=== PATIENT | female | born 1990 | race Caucasian/White ===

== ENCOUNTER 2025-03-27 07:42 | Inpatient (IN) ==
[2025-03-27] MEDS ORDERED: OXYTOCIN 30 UNITS/NSS 30 UNITS/500 ML BAG IV PRN ×2 (07:50→21:57)
[2025-03-27] MEDS ORDERED: LIDOCAINE 1% LOCAL 20 ML VIAL INFIL PRN (07:50)
--- NOTE | 2025-03-27 07:53 | History & Physical Report ---
Date of Service March 27, 2025 Assessment & Plan (1) Encounter for induction of labor: Plan Will begin iol with pitocin. Continue to try to dislodge bulb. arom when indicated. epidural on demand. fetus category one. anticipate . Admission and Anticipated Discharge Date Admission Date: March 27, 2025 History of Present Illness Chief Complaint: iol Primary Care Provider: [facility] Patient is a 34yowf with iup at 40 3/7 who presents for iol. Had a storey blub placed last night. and Delivery Plans * PD IOL scheduled 03/27 (40w3d) with [facility]uan Protocols 02/13 arrhythmia heard today on doppler. Weekly NST echo requested OB Labs: Blood Type B Positive 09/10/24 Antibody Screen NEGATIVE 09/10/24 Hgb 11.6 g/dl (12.0-16.0) L 12/30/24 Hct 34.3 % (37.0-47.0) L 12/30/24 MCV 87.3 fL (80.0-100.0) 09/10/24 Plt Count 302 K/uL (130-400) 09/10/24 Rubella IgG Antibody Immune (Immune) 09/10/24 Treponema pallidum Ab Negative (Negative) 12/30/24 Hep Bs Antigen Negative (Negative) 09/10/24 Hepatitis C Antibody Negative (Negative) 09/10/24 HIV 1&2 Ab/P24 Ag 4thGn Negative (Negative) 09/10/24 Glucose 1 Hr 50 gm 121 mg/dl (70-130) 12/30/24 OB Optional Labs: Chlamydia trachomatis RNA Not Detected (NotDetected) 09/10/24 Neisseria gonorrhoeae RNA Not Detected (NotDetected) 09/10/24 Labs Reviewed: quad declines smp cfDNA declines smp cf/sma declines smp gbs neg Allergies Allergy/AdvReac Type Severity Reaction Status Date / Time No Known Allergies Allergy Verified 03/26/25 14:48 Home Medications Medication Instructions Recorded Confirmed Type prenat.vits,josie,knt-mrhn-vprxp tab PO 09/03/24 03/26/25 History Patient History Surgical History S/P wisdom tooth extraction Family History Father Factor V deficiency Sister Factor V deficiency Social History Smoking Status: Never smoker Second Hand Exposure: No; Hx Alcohol Use: No Hx Substance Use: No marital status: marital status details: Bj (35) [phone] Current Living Situation: Spouse Current Living Situation Comment: lives with spouse, 1 dog. current occupational status: employed current occupation: [employer]. Feels Safe at Home: Yes OB History g1--present [employer] History noncontributory Physical Exam Constitutional: WD/WN, vitals as above Gastrointestinal (Abdomen): soft, gravid, nt Psychiatric: A+Ox3, euthymic affect Genitourinary: bulb still in gentle tug and did not dislodge toco--jamie efm--140s with mod variabiltiy, accels to 150s, no decels Coding Level of Care Code None Diagnoses Encounter for induction of labor Z34.90
[2025-03-27] MEDS: LACTATED RINGER'S 1,000 ML IV PRN (08:29)
[2025-03-27] MEDS: OXYTOCIN 30 UNITS/NSS 30 UNITS/500 ML BAG IV PRN (08:29)
[2025-03-27 09:05] LABS: Hematocrit (blood only) 36.0 % (37.0-47.0); Hemoglobin 12.4 g/dl (12.0-16.0); Mean Corpuscular Hemoglobin 31.2 pg (25.0-34.0); Mean Corpuscular Volume 90.7 fL (80.0-100.0); Platelet Count 218 K/uL (130-400); RDW Standard Deviation 46.2 fL (36.4-46.3); Red Blood Count 3.97 M/uL (4.20-5.40); White Blood Count 12.87 K/ul (4.8-10.8)
--- NOTE | 2025-03-27 12:40 | Labor Progress Brief Note ---
Date of Service March 27, 2025 Subjective noting contractions, getting uncomfortable Assessment & Plan (1) Encounter for induction of labor: Plan get epidural. then plan arom. fetus category one Admission and Anticipated Discharge Date Admission Date: March 27, 2025 Physical Exam Physical Exam: balloon removed with a gentle tug cx--3-4/75/-2/mid/soft toco--q3-4min, pit at 14 efm--130s wtih mod variability, accels to 150s, no decels Results & Data Vital Signs (Past 12 Hours) Vital Signs Temp Pulse Resp BP 03/27/25 12:31 77 117/55 L 03/27/25 11:30 78 116/63 03/27/25 11:00 36.6 C 03/27/25 11:00 16 03/27/25 11:00 36.6 C 16 03/27/25 10:38 74 128/67 03/27/25 09:29 84 118/64 03/27/25 08:29 96 H 125/67 03/27/25 07:57 36.5 C 16 03/27/25 07:52 36.5 C 92 H 16 128/71 Coding Level of Care Code None Diagnoses Encounter for induction of labor Z34.90
[2025-03-27] MEDS ORDERED: ROPIVACAINE 0.5% PF 5 MG/ML 20 ML VIAL EPI PRN (13:08)
[2025-03-27] MEDS ORDERED: LIDOCAINE 2% MPF LOCAL 5 ML VIAL EPI PRN (13:08)
[2025-03-27] MEDS ORDERED: BUPIVACAINE 0.25% PF 30 ML VIAL EPI STA (13:08)
[2025-03-27] MEDS ORDERED: BUPIVACAINE 0.25% PF 30 ML VIAL EPI PRN (13:08)
[2025-03-27] MEDS ORDERED: fentANYL 2 MCG/ML BUPIVacaine 0.125%-NSS 100ML BAG EPI PRN (13:08)
[2025-03-27] MEDS ORDERED: NALOXONE HCL 1 MG in SODIUM CHLORIDE 0.9% 1,000 ML IV PRN (13:08)
[2025-03-27] MEDS ORDERED: NALOXONE HCL 0.4 MG/1 ML VIAL/CARP IV PRN (13:08)
[2025-03-27] MEDS ORDERED: diphenhydrAMINE 50 MG/ML VIAL IV PRN (13:08)
[2025-03-27] MEDS ORDERED: SODIUM CHLORIDE 0.9% PF INJ 10 ML VIAL EPI STA (13:08)
[2025-03-27] MEDS ORDERED: SODIUM CHLORIDE 0.9% PF INJ 10 ML VIAL EPI PRN (13:08)
[2025-03-27] MEDS ORDERED: LIDOCAINE 2%/EPINEPHRINE 1:200,000 20 ML PF EPI STA (13:08)
[2025-03-27] MEDS ORDERED: NALBUPHINE HCL INJ 10 MG/ML AMP IV PRN (13:08)
--- NOTE | 2025-03-27 13:10 | Anesthesiology Consultation ---
Date of Service March 27, 2025 Assessment & Plan Chart Review Chart Review: Patient NOT seen in Pre Admission Testing and Acceptable Risk for Labor Epidural Consults Requested none ASA ASA2 Proposed Anesthesia Anesthesia Type: Labor Epidural Risk / Benefits Reviewed With: PT / POA / Parent / Guardian, Accepts Plan and Informed Consent Obtained History Height/Weight Height: 5 ft 7 in Weight: 75.75 kg Allergies Allergy/AdvReac Type Severity Reaction Status Date / Time No Known Allergies Allergy Verified 03/26/25 14:48 Medications Home Medications Medication Instructions Recorded Confirmed Last Taken prenat.vits,josie,[id number] tab PO 09/03/24 03/26/25 03/26/25 Active Medications Generic Name Dose Route Start Last Admin Trade Name Freq PRN Reason Stop Dose Admin Lactated Ringer's 1,000 mls @ 125 mls/hr 03/27/25 07:50 03/27/25 13:12 Lr IV 03/29/25 07:49 125 mls/hr .Q8H PRN Administration L&D Protocol Protocol Oxytocin 30 units in 500 mls @ 14 mls/hr 03/27/25 07:58 03/27/25 11:30 Pitocin 30 Units/Nss IV 03/29/25 07:57 0.84 units/hr .Q24H PRN 14 mls/hr Labor Induction/Augmentation Titration Protocol 0.84 UNITS/HR NPO Date Last Intake of Fluids: 03/27/25 Time Last Intake of Fluids: 13:00 Date Last Intake of Solids: 03/27/25 Time Last Intake of Solids: 07:00 Exercise / Class Metabolic Activity 1 > 8 Run/Swim/Ski/Tennis Past Family History Family History Father Factor V deficiency Sister Factor V deficiency Past Surgical History Surgical History S/P wisdom tooth extraction Past Anesthesia History No Hx of Anesthesia Complications and No Family Hx of Anesthesia Complications History of PONV No Hx of PONV and No Hx of Motion Sickness Social History Smoking Status: Never smoker Do You Dip or Chew Tobacco: No Hx Alcohol Use: No Hx Substance Use: No substance use type: does not use Review of Systems ROS Unobtainable: All systems reviewed & are unremarkable except as noted in HPI & below Physical Exam Vital Signs Last Vital Signs Temp 36.6 C 03/27/25 11:00 Pulse 77 03/27/25 12:31 Resp 16 03/27/25 11:00 BP 117/55 L 03/27/25 12:31 ENMT Mouth: no TMJ abnormality Thyromental Distance: > or= 3.5 Finger Breadths Mallampati Class: II Neck normal visual inspection and trachea midline; neck extension not limited Respiratory normal respiratory effort Auscultation: lungs clear to auscultation bilaterally Cardiovascular Rate/Rhythm: regular rate and regular rhythm Heart Sounds: no murmur Musculoskeletal Spine: normal cervical ROM Extremities: full ROM of extremities Neurologic moves all extremities Psychiatric Orientation: alert and oriented x 3 Testing Laboratory Results 03/27/25 08:50
[2025-03-27] MEDS: LIDOCAINE 2%/EPINEPHRINE 1:200,000 20 ML PF ONE (13:28)
[2025-03-27] MEDS: BUPIVACAINE 0.25% PF 30 ML VIAL ONE (13:28)
[2025-03-27] MEDS: fentANYL 2 MCG/ML BUPIVacaine 0.125%-NSS 100ML BAG ONE (13:29)
[2025-03-27] MEDS: SODIUM CHLORIDE 0.9% PF INJ 10 ML VIAL ONE (14:11)
--- NOTE | 2025-03-27 14:14 | Labor Progress Brief Note ---
Date of Service March 27, 2025 Subjective comfortable with epidural Assessment & Plan (1) Encounter for induction of labor: Plan continue current management. fetus category one. anticipate . Admission and Anticipated Discharge Date Admission Date: March 27, 2025 Physical Exam Physical Exam: cx--4/80/-2 arom--clear pit at 14 toco--q2-3min efm--130s wtih mod variability, accels to 150s, no decels Results & Data Vital Signs (Past 12 Hours) Vital Signs Temp Pulse Resp BP Pulse Ox Pulse Ox 03/27/25 14:09 75 113/58 L 99 03/27/25 14:08 73 83 L 03/27/25 14:04 77 100 03/27/25 14:03 76 123/57 L 03/27/25 13:59 100 03/27/25 13:59 73 03/27/25 13:59 74 118/55 L 03/27/25 13:54 100 03/27/25 13:54 68 03/27/25 13:54 74 121/57 L 03/27/25 13:49 86 100 03/27/25 13:47 94 H 109/53 L 03/27/25 13:44 96 H 100 03/27/25 13:42 85 104/56 L 03/27/25 13:40 88 118/58 L 03/27/25 13:39 98 H 100 03/27/25 13:38 89 121/57 L 03/27/25 13:36 85 122/56 L 03/27/25 13:34 96 H 100 03/27/25 13:33 86 124/60 03/27/25 13:31 88 125/60 03/27/25 13:29 87 129/66 100 03/27/25 13:27 79 132/63 03/27/25 13:25 82 129/69 03/27/25 13:24 75 100 03/27/25 13:21 100 03/27/25 13:19 85 100 03/27/25 12:31 77 117/55 L 03/27/25 11:30 78 116/63 03/27/25 11:00 36.6 C 03/27/25 11:00 16 03/27/25 11:00 36.6 C 16 03/27/25 10:38 74 128/67 03/27/25 09:29 84 118/64 03/27/25 08:29 96 H 125/67 03/27/25 07:57 36.5 C 16 03/27/25 07:52 36.5 C 92 H 16 128/71 Coding Level of Care Code None Diagnoses Encounter for induction of labor Z34.90
--- NOTE | 2025-03-27 18:21 | Labor Progress Brief Note ---
Date of Service March 27, 2025 Subjective comfortable with epidural Assessment & Plan (1) Encounter for induction of labor: Plan continue current management. fetus category one. anticipate . Admission and Anticipated Discharge Date Admission Date: March 27, 2025 Physical Exam Physical Exam: cx--5/100/-1 toco--q2-3, pit at 20 efm--140s with mod variability, accels to 160s, no decels Results & Data Vital Signs (Past 12 Hours) Vital Signs Temp Pulse Resp BP Pulse Ox Pulse Ox 03/27/25 18:19 93 H 100 03/27/25 18:15 88 127/62 03/27/25 18:14 87 98 03/27/25 18:09 105 H 100 03/27/25 18:04 93 H 100 03/27/25 18:00 107 H 144/75 H 03/27/25 17:59 112 H 99 03/27/25 17:54 92 H 99 03/27/25 17:49 95 H 99 03/27/25 17:44 95 H 144/70 H 98 03/27/25 17:39 97 H 99 03/27/25 17:34 92 H 100 03/27/25 17:29 100 03/27/25 17:29 101 H 03/27/25 17:29 100 H 141/70 H 03/27/25 17:24 88 100 03/27/25 17:19 114 H 100 03/27/25 17:14 96 H 138/66 99 03/27/25 17:09 108 H 100 03/27/25 17:04 100 H 100 03/27/25 16:59 106 H 138/71 100 03/27/25 16:54 84 100 03/27/25 16:49 97 H 100 03/27/25 16:46 84 138/65 03/27/25 16:44 103 H 100 03/27/25 16:39 130 H 100 03/27/25 16:34 97 H 100 03/27/25 16:30 103 H 136/73 03/27/25 16:29 105 H 100 03/27/25 16:24 109 H 100 03/27/25 16:19 97 H 100 03/27/25 16:14 107 H 132/63 100 03/27/25 16:09 88 100 03/27/25 16:04 87 100 03/27/25 16:00 18 03/27/25 16:00 36.6 C 18 03/27/25 15:59 104 H 121/61 100 03/27/25 15:54 95 H 100 03/27/25 15:49 94 H 100 03/27/25 15:45 101 H 129/67 03/27/25 15:44 101 H 100 03/27/25 15:39 102 H 100 03/27/25 15:34 91 H 100 03/27/25 15:29 95 H 114/60 100 03/27/25 15:24 87 100 03/27/25 15:19 74 99 03/27/25 15:14 78 113/57 L 100 03/27/25 15:09 74 100 03/27/25 15:04 76 99 03/27/25 14:59 74 117/55 L 100 03/27/25 14:54 74 100 03/27/25 14:49 76 100 03/27/25 14:45 78 115/57 L 93 03/27/25 14:44 75 100 03/27/25 14:39 72 100 03/27/25 14:34 82 100 03/27/25 14:29 70 103/54 L 99 03/27/25 14:24 76 98 03/27/25 14:19 65 98 03/27/25 14:15 18 03/27/25 14:15 36.6 C 18 03/27/25 14:14 70 111/53 L 100 03/27/25 14:09 75 113/58 L 99 03/27/25 14:08 73 83 L 03/27/25 14:04 77 100 03/27/25 14:03 76 123/57 L 03/27/25 13:59 100 03/27/25 13:59 73 03/27/25 13:59 74 118/55 L 03/27/25 13:54 100 03/27/25 13:54 68 03/27/25 13:54 74 121/57 L 03/27/25 13:49 86 100 03/27/25 13:47 94 H 109/53 L 03/27/25 13:44 96 H 100 03/27/25 13:42 85 104/56 L 03/27/25 13:40 88 118/58 L 03/27/25 13:39 98 H 100 03/27/25 13:38 89 121/57 L 03/27/25 13:36 85 122/56 L 03/27/25 13:34 96 H 100 03/27/25 13:33 86 124/60 03/27/25 13:31 88 125/60 03/27/25 13:29 87 129/66 100 03/27/25 13:27 79 132/63 03/27/25 13:25 82 129/69 03/27/25 13:24 75 100 03/27/25 13:21 100 03/27/25 13:19 85 100 03/27/25 12:31 77 117/55 L 03/27/25 11:30 78 116/63 03/27/25 11:00 36.6 C 03/27/25 11:00 16 03/27/25 11:00 36.6 C 16 03/27/25 10:38 74 128/67 03/27/25 09:29 84 118/64 03/27/25 08:29 96 H 125/67 03/27/25 07:57 36.5 C 16 03/27/25 07:52 36.5 C 92 H 16 128/71 Coding Level of Care Code None Diagnoses Encounter for induction of labor Z34.90
--- NOTE | 2025-03-27 19:46 | Labor Progress Brief Note ---
Date of Service March 27, 2025 Subjective Patient feeling pressure Assessment & Plan (1) Encounter for induction of labor: Plan Will start second stage. Fetus overall reassuring. Feeling pressure and wants to push. Admission and Anticipated Discharge Date Admission Date: March 27, 2025 Physical Exam Physical Exam: cx--c/c/+1 per nursing, was just 8.5cm less than 39 min ago toco--q2-3, pit at 20 efm--150s with mod variability, probable early with contractions Results & Data Vital Signs (Past 12 Hours) Vital Signs Temp Pulse Resp BP Pulse Ox Pulse Ox 03/27/25 19:39 112 H 100 03/27/25 19:34 109 H 98 03/27/25 19:31 102 H 131/71 03/27/25 19:29 96 H 99 03/27/25 19:24 92 H 100 03/27/25 19:19 96 H 99 03/27/25 19:16 90 128/71 03/27/25 19:14 89 98 03/27/25 19:09 86 99 03/27/25 19:04 94 H 98 03/27/25 19:00 36.6 C 88 16 134/71 03/27/25 18:59 86 99 03/27/25 18:54 97 H 99 03/27/25 18:49 94 H 100 03/27/25 18:44 90 116/56 L 99 03/27/25 18:39 84 98 03/27/25 18:34 96 H 99 03/27/25 18:29 89 119/56 L 99 03/27/25 18:24 96 H 98 03/27/25 18:19 93 H 100 03/27/25 18:15 88 127/62 03/27/25 18:14 87 98 03/27/25 18:09 105 H 100 03/27/25 18:04 93 H 100 03/27/25 18:00 107 H 144/75 H 03/27/25 17:59 112 H 99 03/27/25 17:54 92 H 99 03/27/25 17:49 95 H 99 03/27/25 17:44 95 H 144/70 H 98 03/27/25 17:39 97 H 99 03/27/25 17:34 92 H 100 03/27/25 17:29 100 03/27/25 17:29 101 H 07/24/25 17:29 100 H 141/70 H 03/27/25 17:24 88 100 03/27/25 17:19 114 H 100 03/27/25 17:14 96 H 138/66 99 03/27/25 17:09 108 H 100 03/27/25 17:04 100 H 100 03/27/25 16:59 106 H 138/71 100 03/27/25 16:54 84 100 03/27/25 16:49 97 H 100 03/27/25 16:46 84 138/65 03/27/25 16:44 103 H 100 03/27/25 16:39 130 H 100 03/27/25 16:34 97 H 100 03/27/25 16:30 103 H 136/73 03/27/25 16:29 105 H 100 03/27/25 16:24 109 H 100 03/27/25 16:19 97 H 100 03/27/25 16:14 107 H 132/63 100 03/27/25 16:09 88 100 03/27/25 16:04 87 100 03/27/25 16:00 18 03/27/25 16:00 36.6 C 18 03/27/25 15:59 104 H 121/61 100 03/27/25 15:54 95 H 100 03/27/25 15:49 94 H 100 03/27/25 15:45 101 H 129/67 03/27/25 15:44 101 H 100 03/27/25 15:39 102 H 100 03/27/25 15:34 91 H 100 03/27/25 15:29 95 H 114/60 100 03/27/25 15:24 87 100 03/27/25 15:19 74 99 03/27/25 15:14 78 113/57 L 100 03/27/25 15:09 74 100 03/27/25 15:04 76 99 03/27/25 14:59 74 117/55 L 100 03/27/25 14:54 74 100 03/27/25 14:49 76 100 03/27/25 14:45 78 115/57 L 93 03/27/25 14:44 75 100 03/27/25 14:39 72 100 03/27/25 14:34 82 100 03/27/25 14:29 70 103/54 L 99 03/27/25 14:24 76 98 03/27/25 14:19 65 98 03/27/25 14:15 18 03/27/25 14:15 36.6 C 18 03/27/25 14:14 70 111/53 L 100 03/27/25 14:09 75 113/58 L 99 03/27/25 14:08 73 83 L 03/27/25 14:04 77 100 03/27/25 14:03 76 123/57 L 03/27/25 13:59 100 03/27/25 13:59 73 03/27/25 13:59 74 118/55 L 03/27/25 13:54 100 03/27/25 13:54 68 03/27/25 13:54 74 121/57 L 03/27/25 13:49 86 100 03/27/25 13:47 94 H 109/53 L 03/27/25 13:44 96 H 100 03/27/25 13:42 85 104/56 L 03/27/25 13:40 88 118/58 L 03/27/25 13:39 98 H 100 03/27/25 13:38 89 121/57 L 03/27/25 13:36 85 122/56 L 03/27/25 13:34 96 H 100 03/27/25 13:33 86 124/60 03/27/25 13:31 88 125/60 03/27/25 13:29 87 129/66 100 03/27/25 13:27 79 132/63 03/27/25 13:25 82 129/69 03/27/25 13:24 75 100 03/27/25 13:21 100 03/27/25 13:19 85 100 03/27/25 12:31 77 117/55 L 03/27/25 11:30 78 116/63 03/27/25 11:00 36.6 C 03/27/25 11:00 16 03/27/25 11:00 36.6 C 16 03/27/25 10:38 74 128/67 03/27/25 09:29 84 118/64 03/27/25 08:29 96 H 125/67 03/27/25 07:57 36.5 C 16 03/27/25 07:52 36.5 C 92 H 16 128/71 Coding Level of Care Code None Diagnoses Encounter for induction of labor Z34.90
--- NOTE | 2025-03-27 20:55 | Delivery Summary ---
Vaginal Delivery Summary Date of Service March 27, 2025 Vaginal Delivery Summary and 2nd Degree LAC Pre-operative Diagnosis: at 40 weeks iol Post-operative Diagnosis: same Procedure: storey for cervical ripening pitocin iol epidural arom seond degree laceration repair QBL: 303 Anesthesia: epidural Procedure: Patient presented to labor and delivery for iol for postdates. Arrived with storey in place. Pitocin started. Storey eventually removed. Got epidural and then arom for clear fluid. Progressed to c/c/+1. The patient pushed for about one hour to deliver a viable female in humera position. The nose and mouth were bulb suctioned on the perineum and a loose nuchal cord reduced easily. and the rest of the was then delivered without difficulty. The baby was vigorous. The nose and mouth were again bulb suctioned and the was placed in the maternal abdomen for drying and attention. Cord was clamped and cut at one minute of life. Cord blood and segment obtained. Placenta delivered spontaneous, intact with a three vessel cord. Cervix/sulci/rectum were intact. A second degree perineal laceration was repaired in the normal standard fashion. Hemostasis obtained with dilute pitocin and fundal massage. Apgars were 9/9. Mother and baby doing well at the end of the delivery. [facility] Vaginal Delivery Charge Delivery Type Details: and 2nd Degree LAC
[2025-03-27] MEDS ORDERED: HYDROCORTISONE ACETATE 25 MG SUPP PR PRN (21:57)
[2025-03-27] MEDS ORDERED: DIPHTHER/TETAN/PERTUS Vaccine (Tdap, Adol/Adult) 0.5mL IM ONE (21:57)
[2025-03-27] MEDS: IBUPROFEN 600 MG TAB PO PRN (22:11)
[2025-03-27] MEDS: BENZOCAINE 20% SPRY 85 APPLN/85 GM CAN EXT PRN (22:11)
--- NOTE | 2025-03-27 23:00 | Anesthesia Procedure Note ---
Date of Service March 27, 2025 Anesthesia Post Epidural Note Vital Signs Vital Signs: Temp Pulse Resp BP Pulse Ox 36.6 C 96 H 16 142/85 H 97 03/27/25 19:00 03/27/25 22:50 03/27/25 19:00 03/27/25 22:45 03/27/25 22:50 Pain Intensity Abdomen: Pain Intensity: 4 Notes Mental Status: alert / awake / arousable and participated in evaluation Nausea / Vomiting: adequately controlled Pain: adequately controlled Airway Patency, RR, SpO2: stable & adequate BP & HR: stable & adequate Hydration State: stable & adequate Neuraxial Anesthesia: was administered and sensory block is resolving Anesthetic Complications: no major complications apparent Epidural: Removed without complications and With tip intact
[2025-03-28] MEDS: DOCUSATE SODIUM 100 MG CAP PO SCH (00:32)
[2025-03-28 06:18] LABS: Hematocrit (blood only) 30.6 % (37.0-47.0); Hemoglobin 10.5 g/dl (12.0-16.0)
--- NOTE | 2025-03-28 06:32 | Obstetrical Progress Note ---
Date of Service March 28, 2025 Assessment & Plan (1) examination following vaginal delivery: Plan: 34 y/o day 1 s/p . Feels well today. Vital signs stable Continue post- care Encourage ambulation and Pain controlled with ibuprofen Hgb stable Anticipate home discharge tomorrow, follow up with Dr. Dickerson in 6 weeks. Admission and Anticipated Discharge Date Admission Date: March 27, 2025 Anticipated date of discharge: 03/29/25 Supervising Physician Co-Signing Physician Notes Resident Physician Supervision Note: I interviewed and examined the patient. Discussed with Dr. Mckeon and agree with findings and plan as documented in the note. Any exceptions or clarifications are listed here: Doing well. Routine care. Documented By: Rose Mary Dickerson MD, FACOG Subjective Umu Moore is a 34 y/o day 1 s/p . Ambulation: ambulating normally Voiding: no voiding problems Passing Gas:: Yes Diet Tolerance:: regular diet Lochia:: Small Feeding Type:: breast feeding Current Pain Level: 1/10 Resting comfortably this AM in NAD. Denies WADDELL, CP, SOB, N/V/D, LE pain/swelling. Review of Systems Review of Systems: All systems reviewed & are unremarkable except as noted in HPI & below Physical Exam Physical Exam: General: patient resting comfortably, NAD, non-toxic in appearance, AA&O x 4, answers questions appropriately. Skin: warm, dry, intact HEENT: NC/AT, anicteric sclera, conjunctiva without injection, moist mucus membranes. Heart: +S1/S2, regular, no m/r/g Lungs: equal air entry bilaterally, no rales/rhonchi/wheezes Abd: +BS, soft, NT/ND, uterine fundus firm, nontender below umbilicus. Ext: warm, no clubbing/cyanosis or edema, Mariela's neg. Neuro: nonfocal, patient AA&O x 4, speech intact, no facial droop, moving all extremities on command. Constitutional: WD/WN, vitals as above Results & Data Vital Signs (Past 12 Hours) Vital Signs Temp Pulse Pulse Resp BP BP Pulse Ox 03/28/25 03:50 36.7 C 76 16 110/64 98 03/28/25 00:00 36.8 C 87 18 119/67 98 03/27/25 22:50 96 H 97 03/27/25 22:45 97 H 142/85 H 97 03/27/25 22:40 94 H 97 03/27/25 22:35 93 H 98 03/27/25 22:30 98 03/27/25 22:30 93 H 03/27/25 22:30 98 H 131/60 03/27/25 22:25 104 H 98 03/27/25 22:20 96 H 98 03/27/25 22:15 98 03/27/25 22:15 108 H 03/27/25 22:15 109 H 122/60 03/27/25 22:10 114 H 98 03/27/25 22:05 102 H 98 03/27/25 22:00 94 H 98 03/27/25 21:59 97 H 124/64 03/27/25 21:55 95 H 99 03/27/25 21:50 96 H 99 03/27/25 21:45 99 03/27/25 21:45 98 H 03/27/25 21:45 87 126/56 L 03/27/25 21:29 100 H 120/63 03/27/25 21:14 89 120/60 03/27/25 20:59 96 H 127/60 03/27/25 20:50 97 H 99 03/27/25 20:45 100 03/27/25 20:45 98 H 03/27/25 20:45 102 H 132/58 L 03/27/25 20:40 106 H 99 03/27/25 20:35 147 H 96 03/27/25 20:31 136 H 89 L 03/27/25 20:30 132 H 147/63 H 98 03/27/25 20:25 141 H 99 03/27/25 20:20 99 03/27/25 20:20 117 H 03/27/25 20:20 115 H 88 L 03/27/25 20:15 98 03/27/25 20:15 104 H 03/27/25 20:15 100 H 130/61 03/27/25 20:14 106 H 89 L 03/27/25 20:10 109 H 95 03/27/25 20:09 101 H 84 L 03/27/25 20:05 104 H 83 L 03/27/25 20:01 100 H 89 L 03/27/25 20:00 90 131/59 L 98 03/27/25 19:54 86 99 03/27/25 19:49 92 H 100 03/27/25 19:46 100 H 137/96 03/27/25 19:44 107 H 100 03/27/25 19:39 112 H 100 03/27/25 19:34 109 H 98 03/27/25 19:31 102 H 131/71 03/27/25 19:29 96 H 99 03/27/25 19:24 92 H 100 03/27/25 19:19 96 H 99 03/27/25 19:16 90 128/71 03/27/25 19:14 89 98 03/27/25 19:09 86 99 03/27/25 19:04 94 H 98 03/27/25 19:00 36.6 C 88 16 134/71 03/27/25 18:59 86 99 03/27/25 18:54 97 H 99 03/27/25 18:49 94 H 100 03/27/25 18:44 90 116/56 L 99 03/27/25 18:39 84 98 03/27/25 18:34 96 H 99 O2 Del Method 03/28/25 03:50 Room Air 03/28/25 00:00 Room Air 03/27/25 22:50 03/27/25 22:45 03/27/25 22:40 03/27/25 22:35 03/27/25 22:30 03/27/25 22:30 03/27/25 22:30 03/27/25 22:25 03/27/25 22:20 03/27/25 22:15 03/27/25 22:15 03/27/25 22:15 03/27/25 22:10 03/27/25 22:05 03/27/25 22:00 03/27/25 21:59 03/27/25 21:55 03/27/25 21:50 03/27/25 21:45 03/27/25 21:45 03/27/25 21:45 03/27/25 21:29 03/27/25 21:14 03/27/25 20:59 03/27/25 20:50 03/27/25 20:45 03/27/25 20:45 03/27/25 20:45 03/27/25 20:40 03/27/25 20:35 03/27/25 20:31 03/27/25 20:30 03/27/25 20:25 03/27/25 20:20 03/27/25 20:20 03/27/25 20:20 03/27/25 20:15 03/27/25 20:15 03/27/25 20:15 03/27/25 20:14 03/27/25 20:10 03/27/25 20:09 03/27/25 20:05 03/27/25 20:01 03/27/25 20:00 03/27/25 19:54 03/27/25 19:49 03/27/25 19:46 03/27/25 19:44 03/27/25 19:39 03/27/25 19:34 03/27/25 19:31 03/27/25 19:29 03/27/25 19:24 03/27/25 19:19 03/27/25 19:16 03/27/25 19:14 03/27/25 19:09 03/27/25 19:04 03/27/25 19:00 03/27/25 18:59 03/27/25 18:54 03/27/25 18:49 03/27/25 18:44 03/27/25 18:39 03/27/25 18:34
[2025-03-28] MEDS: ACETAMINOPHEN 325 MG TAB PO PRN (07:51)
[2025-03-28] MEDS: PRENATAL VITAMIN 1 TAB PO SCH (08:17)
--- NOTE | 2025-03-29 04:57 | Obstetrical Progress Note ---
Date of Service March 29, 2025 Assessment & Plan (1) examination following vaginal delivery: Plan: 34 y/o day 2 s/p . Feels well today. Vital signs stable Continue post- care Encourage ambulation and Pain controlled with ibuprofen Hgb stable Discharge home today, follow up with Dr. Dickerson in 6 weeks. Admission and Anticipated Discharge Date Admission Date: March 27, 2025 Anticipated date of discharge: 03/29/25 Supervising Physician Co-Signing Physician Notes Resident Physician Supervision Note: I interviewed and examined the patient. Discussed with Dr. Mckeon and agree with findings and plan as documented in the note. Any exceptions or clarifications are listed here: PP2 s/p , doing well. VSS, exam benign. Stable for dc Documented By: Stacie Kc MD Subjective Umu Moore is a 34 y/o day 2 s/p . Ambulation: ambulating normally Voiding: no voiding problems Passing Gas:: Yes Diet Tolerance:: regular diet Lochia:: Small Feeding Type:: breast feeding Current Pain Level: 1/10 Resting comfortably this AM in NAD. Denies WADDELL, CP, SOB, N/V/D, LE pain/swelling. Review of Systems Review of Systems: All systems reviewed & are unremarkable except as noted in HPI & below Physical Exam Physical Exam: General: patient resting comfortably, NAD, non-toxic in appearance, AA&O x 4, answers questions appropriately. Skin: warm, dry, intact HEENT: NC/AT, anicteric sclera, conjunctiva without injection, moist mucus membranes. Heart: +S1/S2, regular, no m/r/g Lungs: equal air entry bilaterally, no rales/rhonchi/wheezes Abd: +BS, soft, NT/ND, uterine fundus firm, nontender below umbilicus. Ext: warm, no clubbing/cyanosis or edema, Mariela's neg. Neuro: nonfocal, patient AA&O x 4, speech intact, no facial droop, moving all extremities on command. Constitutional: WD/WN, vitals as above Results & Data Vital Signs (Past 12 Hours) Vital Signs Temp Pulse Resp BP Pulse Ox O2 Del Method 03/29/25 03:26 36.4 C L 64 16 121/71 98 Room Air 03/28/25 18:57 36.5 C 71 18 111/66 97 Room Air
[2025-03-29 10:33] VITALS: BP 113/67; PULSE 60; RESP 18; TEMP 97.9; O2SAT 99
== END 2025-03-29 14:30 | disposition home or self-care (01) | DRG 807 ==
LOC: 4S1 07:42 → 4E2 23:36